=== PATIENT | male | born 1950 | race Two or more races ===

== ENCOUNTER 2020-07-09 12:43 | Emergency (ER) | payer OTHER ==
[~2020-07-09] VITALS: Ht 170.2 cm; Wt 77.1 kg
[2020-07-09] MEDS ORDERED: CRESTOR20 MG (13:15)
[2020-07-09] MEDS ORDERED: AVALIDE 300-121 EACH (13:15)
[2020-07-09] MEDS ORDERED: TRAMADOL HCL50 MG PO (20:08)
== END 2020-07-09 20:43 | disposition home or self-care (01) ==
LOC: ER 12:43
DX: I87.2 Venous insufficiency (chronic) (peripheral) (principal); M79.662 Pain in left lower leg; Z03.818 Encounter for observation for suspected exposure to other biological agents ruled out